=== PATIENT | male | born 1995 | race African-American/Black ===

== ENCOUNTER 2021-08-10 23:26 | Emergency (ER) | payer MEDICAID ==
[~2021-08-10] VITALS: Ht 182.9 cm; Wt 83.9 kg
[2021-08-10 23:30] VITALS: BP 113/75
--- NOTE | 2021-08-10 23:33 | NUR ---
TO LOBBY A/W BED AMBULATORY
--- NOTE | 2021-08-11 01:14 | NUR ---
PT TAKEN TO BED 5
--- NOTE | 2021-08-11 01:26 | NUR ---
25 Y/O MALE BIBS, C/O "BEING HOMELESS MAKES HIM FREAK OUT." PT STATES HE LOSS HIS JOB 2 WEEKS AGO. HE LOOKED FOR SHELTERS BUT ALL WERE FULL. PT HAS NO INTENTION OF HURTING OTHERS OR HIMSELF. DENIES N/V/D; SKIN IS PINK/WARM/DRY; AAOX4 WITH EVEN AND STEADY GAIT; LUNGS CLEAR BL; HR EVEN AND REGULAR; PT DENIES ANY FEVER, CP, SOB, OR COUGH AT THIS TIME; PATIENT STATES PAIN OF 0/10 AT THIS TIME; VSS; PATIENT POSITIONED FOR COMFORT; HOB ELEVATED; BEDRAILS UP X2; BED DOWN. ER MD MADE AWARE OF PT STATUS. CUBA
--- NOTE | 2021-08-11 01:55 | NUR ---
Dr. Frazier examining patient.
[2021-08-11] MEDS ORDERED: IBUP-2213 PO (02:02)
[2021-08-11] MEDS ORDERED: ATA25 PO (02:02)
--- NOTE | 2021-08-11 02:02 | NUR ---
PT PROVIDED WITH MEAL AND PO FLUIDS. LIGHTS DIMMED FOR PT COMFORT.
[2021-08-11 05:31] VITALS: BP 114/80
--- NOTE | 2021-08-11 05:31 | NUR ---
Patient discharged with v/s stable. Written and verbal after care instructions given and explained. Patient alert, oriented and verbalized understanding of instructions. Ambulatory with steady gait. All questions addressed prior to discharge. ID band removed. Patient advised to follow up with PMD. Rx of ATARAX AND IBUPROFEN given. Patient educated on indication of medication including possible reaction and side effects. Opportunity to ask questions provided and answered. A/OX4, VSS, AMBULATORY, UNLABORED BREATHING, AND CALM DEMEANOR. HOMELESS PACKET AND RESOURCES PROVIDED. PT GIVEN FOOD. CLOTHING ADEQUATE.
== END 2021-08-11 04:52 | disposition home or self-care (01) ==
LOC: MED 23:26
DX: F41.9 Anxiety disorder, unspecified (principal); J45.909 Unspecified asthma, uncomplicated; Z98.890 Other specified postprocedural states
CPT/HCPCS: 99283